=== PATIENT | male | born 1990 | race Caucasian/White ===

== ENCOUNTER 2017-07-07 18:44 | Emergency (ER) | payer SELFPAY ==
[~2017-07-07] VITALS: Ht 167.6 cm; Wt 75.0 kg
[2017-07-07 18:49] VITALS: BP 126/72; PULSE 92; RESP 17; TEMP 98.9; O2SAT 99
[2017-07-07 21:10] VITALS: BP 137/100; PULSE 78; RESP 18; O2SAT 100
[2017-07-07] MEDS ORDERED: LEVE500 PO (21:10)
--- NOTE | 2017-07-07 21:15 | PD ---
HPI Chief Complaint: Cold / Flu Symptoms Time Seen by Provider: 21:08 Travel History International Travel<30 days: No Contact w/Intl Traveler<30days: No Traveled to known affect area: No History of Present Illness HPI C/O GEN WEAKNESS, DIZZINESS, THIRSTY, HAS FAMILY MEMBERS WITH DIABETES SO HE USED THEIR MONITOR TO CHECK HIS BGL WHICH WAS 407, PATIENT CAME TO ED RIGHT AWAY FOR FURTHER EVALUATION... OTHER ASSOC SX INCLUDE RUNNY NOSE, DRY COUGH, BODY ACHES PFSH Past Medical History Seizures: Yes (last 06/25/17) Tetanus Vaccination: Never Vaccinated Influenza Vaccination: No Social History Alcohol Use: No Tobacco Use: Yes Substance Use: No Allergies-Medications (Allergen,Severity, Reaction): Coded Allergies: No Known Allergies (Unverified , 07/07/17) Reported Meds & Prescriptions Reported Meds & Active Scripts Active Reported Keppra (Levetiracetam) 500 Mg Tab 500 Mg PO BID Review of Systems Except as stated in HPI: all other systems reviewed are Neg General / Constitutional: Positive: Chills HENT: Positive: Lightheadedness, Rhinitis, Rhinorrhea Respiratory: Positive: Cough Physical Exam Narrative GENERAL: SKIN: Warm and dry. HEAD: Atraumatic. Normocephalic. EYES: Pupils equal and round. No scleral icterus. No injection or drainage. ENT: No nasal bleeding or discharge. Mucous membranes pink and moist. NECK: Trachea midline. No JVD. CARDIOVASCULAR: Regular rate and rhythm. RESPIRATORY: No accessory muscle use. Clear to auscultation. Breath sounds equal bilaterally. GASTROINTESTINAL: Abdomen soft, non-tender, nondistended. MUSCULOSKELETAL: Extremities without clubbing, cyanosis, or edema. No obvious deformities. NEUROLOGICAL: Awake and alert. No obvious cranial nerve deficits. Motor grossly within normal limits. Five out of 5 muscle strength in the arms and legs. Normal speech. PSYCHIATRIC: Appropriate mood and affect; insight and judgment normal. Data Data Last Documented VS Vital Signs Date Time Temp Pulse Resp B/P Pulse Ox O2 Delivery O2 Flow Rate FiO2 07/07/17 21:10 78 18 137/100 100 Room Air 07/07/17 18:49 98.9 Orders Complete Blood Count With Diff (07/07/17 21:08) Basic Metabolic Panel (Bmp) (07/07/17 21:08) Group A Rapid Strep Screen (07/07/17 21:08) Influenzae A/B Antigen (07/07/17 21:08) Chest, Single Ap (07/07/17 21:08) Hemoglobin (Hgb) A1c (07/07/17 21:08) Strep Culture (Group A) (07/07/17 21:15) Labs Laboratory Tests Test 07/07/17 21:15 White Blood Count 12.2 TH/MM3 Red Blood Count 4.92 MIL/MM3 Hemoglobin 15.8 GM/DL Hematocrit 45.6 % Mean Corpuscular Volume 92.6 FL Mean Corpuscular Hemoglobin 32.2 PG Mean Corpuscular Hemoglobin 34.7 % Concent Red Cell Distribution Width 12.6 % Platelet Count 235 TH/MM3 Mean Platelet Volume 8.3 FL Neutrophils (%) (Auto) 72.2 % Lymphocytes (%) (Auto) 17.4 % Monocytes (%) (Auto) 7.8 % Eosinophils (%) (Auto) 2.4 % Basophils (%) (Auto) 0.2 % Neutrophils # (Auto) 8.8 TH/MM3 Lymphocytes # (Auto) 2.1 TH/MM3 Monocytes # (Auto) 1.0 TH/MM3 Eosinophils # (Auto) 0.3 TH/MM3 Basophils # (Auto) 0.0 TH/MM3 CBC Comment DIFF FINAL Differential Comment Sodium Level 139 MEQ/L Potassium Level 3.7 MEQ/L Chloride Level 105 MEQ/L Carbon Dioxide Level 27.3 MEQ/L Anion Gap 7 MEQ/L Blood Urea Nitrogen 15 MG/DL Creatinine 1.07 MG/DL Estimat Glomerular Filtration 84 ML/MIN Rate Random Glucose 92 MG/DL Hemoglobin A1c 5.1 % Calcium Level 8.6 MG/DL [facility] Medical Decision Making Medical Screen Exam Complete: Yes Emergency Medical Condition: Yes Medical Record Reviewed: Yes Differential Diagnosis FLU V STREP V NEW ONSET DM Narrative Course NEG STREP, FLU AND CXR NEG FOR PNA, ALSO A1C WNL Diagnosis Primary Impression: VIRAL SYNDROME Patient Instructions: General Instructions, Viral Syndrome (ED) Disposition: 01 DISCHARGE HOME Condition: Stable Peterson Xiao MD Jul 07, 2017 21:15
[2017-07-07 21:47] LABS: AUTOMATED NEUTROPHIL # 8.8 TH/MM3 (1.8-7.7); BASOPHIL % 0.2 % (0.0-2.0); EOSINOPHIL # 0.3 TH/MM3 (0-0.4); EOSINOPHIL % 2.4 % (0.0-4.0); HEMATOCRIT 45.6 % (39.0-51.0); HEMO FLAGS DIFF FINAL; LYMPH % 17.4 % (9.0-44.0); LYMPHOCYTE # 2.1 TH/MM3 (1.0-4.8); MEAN CELL VOLUME 92.6 FL (80.0-100.0); MEAN CORPUSCULAR HEMOGLOBIN 32.2 PG (27.0-34.0); MEAN CORPUSCULAR HGB CONC 34.7 % (32.0-36.0); MONO % 7.8 % (0.0-8.0); NEUT % 72.2 % (16.0-70.0); PLATELET COUNT 235 TH/MM3 (150-450); RED BLOOD COUNT 4.92 MIL/MM3 (4.50-5.90); RED CELL DISTRIBUTION WIDTH 12.6 % (11.6-17.2); WHITE BLOOD COUNT 12.2 TH/MM3 (4.0-11.0)
--- NOTE | 2017-07-07 21:57 | RADRPT ---
EXAM DATE/TIME: 07/07/2017 21:24 [place] COMPARISON: No previous studies available for comparison. INDICATIONS : Cough, chest pain MEDICAL HISTORY : None. SURGICAL HISTORY : None. ENCOUNTER: Initial ACUITY: 1 day PAIN SCORE: 7/10 LOCATION: chest FINDINGS: A single view of the chest demonstrates the lungs to be symmetrically aerated without evidence of mas s, infiltrate or effusion. The cardiomediastinal contours are unremarkable. Osseous structures are intact. CONCLUSION: No acute disease. Vargas Alarcon MD on July 07, 2017 at 21:55 Board Certified Radiologist. This report was verified electronically.
[2017-07-07 22:06] LABS: BICARBONATE 27.3 MEQ/L (21.0-32.0); POTASSIUM 3.7 MEQ/L (3.5-5.1)
[2017-07-07 22:45] LABS: HEMOGLOBIN A1b 0.9 %; HEMOGLOBIN F 0.9 %; HEMOGLOBIN LA1C 1.9 %; HEMOGLOBIN P3 3.5 %
[2017-07-07 23:11] VITALS: BP 137/82
== END 2017-07-07 23:15 | disposition home or self-care (01) ==
LOC: NEPE 18:44
DX: B34.9 Viral infection, unspecified (principal); R56.9 Unspecified convulsions; Z72.0 Tobacco use
CPT/HCPCS: 71010; 80048; 83036; 85025; 87081; 87804; 87880; 99284